=== PATIENT | female | born 1960 ===

== ENCOUNTER 2016-12-17 23:06 | Emergency (ER) | payer OTHER ==
[2016-12-17 23:16] VITALS: BMI 35.6
[2016-12-17 23:20] VITALS: BP 124/76; PULSE 75; RESP 18; TEMP 98; O2SAT 96
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
== END 2016-12-18 00:40 | disposition home or self-care (01) ==
LOC: ED 23:06
DX: Z04.1 Encounter for examination and observation following transport accident (principal); V49.49XA Driver injured in collision with other motor vehicles in traffic accident, initial encounter; Y92.410 Unspecified street and highway as the place of occurrence of the external cause
CPT/HCPCS: 96372; 99284; J1885